=== PATIENT | female | born 1995 | race Caucasian/White ===

== ENCOUNTER 2024-10-15 17:59 | Inpatient (IN) ==
[~2024-10-15 17:59] MED LIST: Lidocaine 1% VIAL 10 MG/ML 30 ML VIAL INJ PRN
[2024-10-15] MEDS: Dinoprostone 10 MG VAG.SUPP VAGINAL ONE (19:02)
[2024-10-15 20:12] LABS: ABS Eosinophils 0.1 10^3/uL (0.0-0.5); ABS Lymphocytes 2.2 10^3/uL (1.0-4.8); ABS Monocytes 0.6 10^3/uL (0.0-0.9); ABS Neutrophils 7.2 10^3/uL (1.5-7.6); ABS Nucleated RBC 0.01 10^3/ul; Eosinophil % 1.1 %; Hematocrit 35.4 % (35-45); Hemoglobin 12.2 g/dL (11.5-14.3); Lymphocyte % 21.9 %; Mean Corpuscular Hgb Conc 34.6 g/dL (31-36); Mean Corpuscular Volume 86.6 fL (80-97); Mean Platelet Volume 8.5 fL (7.5-11.2); Platelet Count 232 10^3/uL (150-450); Red Blood Count 4.08 10^6/uL (3.63-4.92); Red Cell Distribution Width 13.9 % (12-17); White Blood Count 10.2 10^3/uL (3.8-11.8)
[2024-10-15 20:31] LABS: Urine Creatinine Concentration 39.51 mg/dL (20.00-320.00); Urine TP Creat Ratio 0.12 mg/mg
[2024-10-15 20:32] LABS: Urine Benzodiazepine Screen None Detected (None Detect); Urine Cannabinoids Screen None Detected (None Detect); Urine Opiates Screen None Detected (None Detect)
[2024-10-15 21:10] LABS: Albumin 3.5 g/dL (3.2-5.2); Albumin/Globulin Ratio 1.4 (1-3); Creatinine, Serum 0.48 mg/dL (0.51-0.95); Globulin 2.5 g/dL (2-4); Potassium 4.1 mmol/L (3.5-5.0); Total Bilirubin 0.4 mg/dL (0.2-1.0); Uric Acid 3.9 mg/dL (2.3-6.6); eGFR CKD-EPI 130.6 (>60)
[2024-10-16] MEDS: Nalbuphine 10 MG/ML 1 ML VIAL IV ONE (01:32)
[2024-10-16] MEDS: Oxytocin in LR 20,000 MILLI.UNIT/1,000 ML BAG IV SCH (10:42)
[2024-10-16] MEDS: Lactated Ringers 1000 ml BAG 1,000 ML IV ONE ×2 (11:00→19:39)
[2024-10-16] MEDS ORDERED: Sodium Citrate/Citric Acid LIQ 15 ML UDC PO PRN (11:56)
[2024-10-16] MEDS ORDERED: Phenylephrine 40 mcg/mL 10mL (400mcg) SYRINGE IV PUSH PRN ×2 (11:56)
[2024-10-16] MEDS: OBEPIDURAL (200 ML) 200 ML EPIDURAL SCH (12:14)
[2024-10-16] MEDS: Lidocaine 1.5% EPI 1:200,000 30 ML SDV ONE (12:15)
[2024-10-16] MEDS: Lactated Ringers 1000 ml BAG 1,000 ML IV SCH (12:15)
[2024-10-16] MEDS: OBEPIDURAL (200 ML) 200 ML EPIDURAL ONE (19:02)
[2024-10-17] MEDS: Famotidine IV 10 MG/ML 2 ml VIAL (20 mg) IV SLOW PU ONE (01:01)
[2024-10-17] MEDS: Oxytocin in LR 20,000 MILLI.UNIT/1,000 ML BAG IV SCH (03:57)
[2024-10-17] MEDS ORDERED: Glycerin ADULT 2.4 gm SUPP PR PRN (04:22)
[2024-10-17] MEDS: Phenylephrine 40 mcg/mL 10mL (400mcg) SYRINGE ONE (04:39)
[2024-10-17] MEDS: Witch Hazel PAD JAR TOPICAL PRN (05:35)
[2024-10-17] MEDS: Dibucaine 1% OINT 28.35 GM TUBE PR PRN (05:35)
[2024-10-18 06:50] LABS: ABS Eosinophils 0.2 10^3/uL (0.0-0.5); ABS Lymphocytes 2.1 10^3/uL (1.0-4.8); ABS Monocytes 0.5 10^3/uL (0.0-0.9); ABS Neutrophils 12.2 10^3/uL (1.5-7.6); Eosinophil % 1.3 %; Hematocrit 31.7 % (35-45); Hemoglobin 10.8 g/dL (11.5-14.3); Mean Corpuscular Hemoglobin 29.8 pg (27-33); Mean Corpuscular Hgb Conc 34.1 g/dL (31-36); Mean Corpuscular Volume 87.3 fL (80-97); Mean Platelet Volume 8.2 fL (7.5-11.2); Platelet Count 201 10^3/uL (150-450); Red Blood Count 3.64 10^6/uL (3.63-4.92); Red Cell Distribution Width 14.1 % (12-17)
[2024-10-19 08:07] VITALS: BP 129/80
== END 2024-10-19 14:25 | disposition home or self-care (01) | DRG 807 ==
LOC: MCHOBOUT 17:59 → MCHOB 18:11
PROVIDERS: ADMIT Midwife; ATTEND Midwife